=== PATIENT | female | born 1940 | race Caucasian/White ===

== ENCOUNTER 2024-05-07 16:34 | Inpatient (IN) | payer MEDICARE, BC ==
[~2024-05-07] VITALS: Ht 162.6 cm; Wt 71.7 kg
[2024-05-07] MEDS ORDERED: ROSU20TA2 PO (17:23)
[2024-05-07] MEDS ORDERED: CARV6.252 PO (17:23)
[2024-05-07] MEDS ORDERED: ESTR0.5T PO (17:23)
[2024-05-07] MEDS ORDERED: PRIM50TA27 PO (17:23)
[2024-05-07] MEDS ORDERED: BUME1TAB8 PO (17:23)
[2024-05-07] MEDS ORDERED: CLOP75TA33 PO (17:23)
[2024-05-07] MEDS ORDERED: PANT40TA49 PO (17:23)
[2024-05-07] MEDS ORDERED: DULO60CA45 PO (17:23)
[2024-05-07] MEDS ORDERED: FAMO20TA8 PO (17:23)
[2024-05-07] MEDS ORDERED: SACU1TAB7 PO (17:23)
[2024-05-07] MEDS ORDERED: LEVO112T5 PO (17:23)
[2024-05-07] MEDS ORDERED: ISOS30TA9 PO (17:23)
[2024-05-07] MEDS ORDERED: POTA-10 PO (17:24)
[2024-05-07] MEDS ORDERED: ALPR0.25 PO (17:24)
[2024-05-07] MEDS ORDERED: NITR0.4T48 SL (17:24)
[2024-05-07 17:54] LABS: BASOPHILS % (AUTO) 0.9 % (0.0-2.0); EOSINOPHILS % (AUTO) 0.8 % (0.0-7.0); HEMATOCRIT 45.2 % (31.2-41.9); HEMOGLOBIN 14.4 g/dL (10.9-14.3); LYMPHOCYTES % (AUTO) 16.6 % (20.5-51.5); MEAN CORPUSCULAR HEMOGLOBIN 28.7 uug (24.7-32.8); MEAN CORPUSCULAR HGB CONC 32 g/dL (32.3-35.6); MEAN CORPUSCULAR VOLUME 90.2 fL (75.5-95.3); MONOCYTES % (AUTO) 10.1 % (0.0-11.0); NEUTROPHILS % (AUTO) 71.6 % (38.5-71.5); PLATELET COUNT (AUTO) 206 K/uL (179-408); RED BLOOD CELL COUNT(AUTO) 5.01 MIL/uL (3.63-4.92); RED CELL DISTRIBUTION WIDTH 16.7 % (12.3-17.7); WHITE BLOOD COUNT (AUTO) 10.8 K/uL (3.8-11.8)
[2024-05-07 17:55] LABS: BASOPHILS # (AUTO) 0.1 K/UL (0.0-0.2); EOSINOPHILS # (AUTO) 0.1 K/uL (0.0-0.7); LYMPHOCYTES # (AUTO) 1.8 K/uL (0.8-4.8); MONOCYTES # (AUTO) 1.1 K/uL (0.1-1.30); NEUTROPHILS # (AUTO) 7.8 K/uL (1.8-8.9)
[2024-05-07 18:02] LABS: DIFFERENTIAL COMMENT 1
[2024-05-07 18:06] LABS: CALCIUM 8.9 mg/dL (8.5-10.1); CARBON DIOXIDE 28 mmol/L (21-32); CHLORIDE 100 mmol/L (98-107); CREATININE 1.7 mg/dL (0.6-1.3); GLUCOSE 107 mg/dL (74-106); POTASSIUM 4.4 mmol/L (3.5-5.1); SODIUM SERUM 139 mmol/L (136-145); UREA NITROGEN, BLOOD 26 mg/dL (7-18)
[2024-05-07 18:16] LABS: LACTIC ACID 2.4 mmol/L (0.4-2.0)
[2024-05-07 18:19] LABS: ALANINE AMINOTRANSFERASE 19 U/L (14-59); ALBUMIN 2.9 g/dL (3.4-5.0); ALKALINE PHOSPHATASE 96 U/L (50-136); ASPARTATE AMINOTRANSFERASE 20 U/L (15-37); BILIRUBIN,DIRECT 0.2 mg/dL (0.0-0.2); BILIRUBIN,TOTAL 0.7 mg/dL (0.2-1.0); NT-PRO BNP 12306 pg/mL (0-125); TOTAL PROTEIN, SERUM 6.6 g/dL (6.4-8.2)
[2024-05-07] MEDS ORDERED: POTASSIUM BICARBONATE/CIT AC 25 MEQ TABLET.EFF ONE (19:57)
[2024-05-07] MEDS ORDERED: FUROSEMIDE 40 MG TABLET ONE (19:58)
[2024-05-07] MEDS: POTASSIUM BICARBONATE/CIT AC 25 MEQ TABLET.EFF PO ONE (20:17)
[2024-05-07] MEDS: FUROSEMIDE 20 MG TABLET PO ONE (20:18)
[2024-05-07 23:30] VITALS: BP 152/95; TEMP 98; O2SAT 97
[2024-05-07] MEDS ORDERED: NITROGLYCERIN 0.4 MG/TAB BOTTLE SL PRN (23:30)
[2024-05-07] MEDS ORDERED: ALPRAZOLAM 0.25 MG TABLET PO PRN (23:30)
[2024-05-07] MEDS ORDERED: VALSARTAN PO SCH (23:30)
[2024-05-07] MEDS ORDERED: DULOXETINE 60 MG CAPSULE.DR PO SCH (23:30)
[2024-05-07] MEDS: CARVEDILOL 6.25 MG TABLET PO SCH (23:30)
[2024-05-07] MEDS: ATORVASTATIN 20 MG TABLET PO SCH (23:30)
[2024-05-07] MEDS: PRIMIDONE 50 MG TABLET PO SCH (23:30)
[2024-05-07] MEDS ORDERED: ACETAMINOPHEN 325 MG TABLET PO PRN (23:30)
[2024-05-07] MEDS: ISOSORBIDE DINITRATE 20 MG TABLET PO SCH (23:30)
[2024-05-07] MEDS ORDERED: ONDANSETRON 4 MG/2 ML VIAL IV PRN (23:30)
[2024-05-07] MEDS ORDERED: SACUBITRIL PO SCH (23:30)
[2024-05-08 00:05] VITALS: BP 151/95; TEMP 97.7; O2SAT 96
[2024-05-08] MEDS: IV NS 1000 ML 1,000 ML IV PRN (03:23)
[2024-05-08] MEDS ORDERED: ALPRAZOLAM 0.25 MG TABLET PO PRN (05:15)
[2024-05-08] MEDS ORDERED: ISOSORBIDE DINITRATE 20 MG TABLET PO SCH (06:00)
[2024-05-08 06:30] VITALS: TEMP 98.2; O2SAT 96
[2024-05-08] MEDS: PANTOPRAZOLE SODIUM 40 MG TABLET.DR PO SCH (06:55)
[2024-05-08] MEDS ORDERED: LEVOTHYROXINE SODIUM 112 MCG TABLET PO SCH ×2 (07:00)
[2024-05-08] MEDS: CARVEDILOL 6.25 MG TABLET PO SCH (08:00)
[2024-05-08] MEDS ORDERED: FAMOTIDINE 20 MG TABLET PO SCH (09:00)
[2024-05-08] MEDS ORDERED: BUMETANIDE 1 MG TABLET PO SCH (09:00)
[2024-05-08] MEDS: ESTRADIOL 1 MG TABLET PO SCH (09:00)
[2024-05-08] MEDS: CLOPIDOGREL 75 MG TABLET PO SCH (09:00)
[2024-05-08] MEDS: BUMETANIDE 1 MG/4 ML VIAL IV SCH (09:00)
[2024-05-08] MEDS: ENOXAPARIN SODIUM 30 MG/0.3 ML DISP.SYRIN SUBCUT SCH (09:00)
[2024-05-08] MEDS ORDERED: ISOS30TA86 PO (11:19)
[2024-05-08] MEDS ORDERED: ASPI81TA31 PO (11:19)
[2024-05-08] MEDS ORDERED: LEVO125T8 PO (11:19)
[2024-05-08 12:00] VITALS: BP 149/99; TEMP 97.3; O2SAT 95
[2024-05-08] MEDS: DULOXETINE 60 MG CAPSULE.DR PO SCH (12:44)
[2024-05-08] MEDS: LEVOTHYROXINE SODIUM 125 MCG TABLET PO SCH (12:44)
[2024-05-08] MEDS: ASPIRIN EC 81 MG TABLET.DR PO SCH (12:44)
[2024-05-08] MEDS: ISOSORBIDE MONONITRATE 30 MG TAB.SR.24H PO SCH (12:45)
[2024-05-08] MEDS: PROTEIN SUPPLEMENT (PROSTAT) 30 ML LIQUID PO SCH (13:45)
[2024-05-08 15:31] LABS: *BILIRUBIN,URIN NEGATIVE (NEGATIVE); *CLARITY,URINE CLEAR (CLEAR); *COLOR,URINE LIGHT YELLOW (YELLOW); *KETONES,URINE NEGATIVE (NEGATIVE); *PROTEIN,URINE NEGATIVE (NEGATIVE); *UROBILINOGEN,URINE 0.2 E.U./dl (NORMAL); LEUKOCYTE ESTERASE ,URINE TRACE (NEGATIVE); NITRITE, URINE NEGATIVE (NEGATIVE); UGLUCOSE NEGATIVE (NEGATIVE)
[2024-05-08 15:34] LABS: *BLOOD, URINE TRACE (NEGATIVE)
[2024-05-08 15:42] LABS: BACTERIA,URINE FEW /HPF (NONE SEEN); RBC,URINE 0-3 /HPF (0-3); SQUAMOUS EPITHELIAL CELL,UR FEW /HPF (NONE SEEN); WBC,URINE 0-3 /HPF (0-3)
[2024-05-08 16:35] VITALS: BP 151/92; TEMP 97.7; O2SAT 95
[2024-05-08] MEDS: SACUBITRIL/VALSARTAN 24 MG-26 TABLET PO SCH (17:51)
[2024-05-08 20:00] VITALS: BP 131/75; TEMP 97.2; O2SAT 95
[2024-05-08] MEDS: ATORVASTATIN 40 MG TABLET PO SCH (21:05)
[2024-05-08] MEDS ORDERED: GUAIFENESIN/DEXTROMETHORPHAN 5 ML UDC PO PRN (23:00)
[2024-05-08 23:57] VITALS: BP 151/90; TEMP 98.1; O2SAT 96
[2024-05-09 04:00] VITALS: BP 157/99; TEMP 98.1; O2SAT 96
[2024-05-09 07:34] LABS: CALCIUM 8.5 mg/dL (8.5-10.1); CARBON DIOXIDE 29 mmol/L (21-32); CHLORIDE 98 mmol/L (98-107); CREATININE 1.4 mg/dL (0.6-1.3); GLUCOSE 130 mg/dL (74-106); POTASSIUM 3.4 mmol/L (3.5-5.1); SODIUM SERUM 137 mmol/L (136-145); UREA NITROGEN, BLOOD 22 mg/dL (7-18)
[2024-05-09 08:00] VITALS: BP 152/90; TEMP 98; O2SAT 92
[2024-05-09] MEDS: POTASSIUM CHLORIDE 20 MEQ POWDER PACKET PO ONE (10:40)
[2024-05-09 12:00] VITALS: BP 104/58; TEMP 97.5; O2SAT 93
[2024-05-09] MEDS ORDERED: ZINC OXIDE OINT 30 GM TUBE TOP PRN (15:00)
[2024-05-09] MEDS ORDERED: REMEDY ESSENTIAL ZINC PASTE 113 GM TOP PRN (15:00)
[2024-05-09 15:57] VITALS: BP 133/81; TEMP 97.9; O2SAT 95
[2024-05-09 17:35] VITALS: BP 133/81
[2024-05-09] MEDS: SACUBITRIL/VALSARTAN 49 MG-51 MG TABLET PO SCH (17:35)
[2024-05-09] MEDS ORDERED: ACET-3117 PO (20:06)
[2024-05-09] MEDS ORDERED: ATOR40TA PO (20:07)
[2024-05-09] MEDS ORDERED: ENOX40DI SQ (20:08)
[2024-05-09] MEDS ORDERED: GUAI474L3 PO (20:11)
[2024-05-09] MEDS ORDERED: ONDA4VIA23 IV (20:15)
[2024-05-09] MEDS ORDERED: PROT30LI PO (20:17)
[2024-05-09] MEDS ORDERED: [UNRECOGNIZED DRUG - CODE] TP (20:22)
[2024-05-10] MEDS ORDERED: BUMETANIDE 1 MG TABLET PO SCH (09:00)
[2024-05-10] MEDS ORDERED: BUME2TAB8 PO (14:07)
== END 2024-05-09 18:39 | DRG 291 ==
LOC: ER 16:35 → MEDSURG3 21:24 → TELE3 05-08 08:00
PROVIDERS: ADMIT Nurse Practitioner Acute Care; ATTEND Nurse Practitioner Acute Care
DX: I13.0 Hypertensive heart and chronic kidney disease with heart failure and stage 1 through stage 4 chronic kidney disease, or unspecified chronic kidney disease (principal); I50.23 Acute on chronic systolic (congestive) heart failure; N17.0 Acute kidney failure with tubular necrosis; I25.810 Atherosclerosis of coronary artery bypass graft(s) without angina pectoris; E44.0 Moderate protein-calorie malnutrition; N39.0 Urinary tract infection, site not specified; R62.7 Adult failure to thrive; R29.6 Repeated falls; I25.5 Ischemic cardiomyopathy; N18.9 Chronic kidney disease, unspecified; E03.9 Hypothyroidism, unspecified; R13.10 Dysphagia, unspecified; T44.7X5A Adverse effect of beta-adrenoreceptor antagonists, initial encounter; T50.2X5A Adverse effect of carbonic-anhydrase inhibitors, benzothiadiazides and other diuretics, initial encounter; Y92.039 Unspecified place in apartment as the place of occurrence of the external cause; R26.81 Unsteadiness on feet; Z68.27 Body mass index [BMI] 27.0-27.9, adult; E88.09 Other disorders of plasma-protein metabolism, not elsewhere classified; Z79.02 Long term (current) use of antithrombotics/antiplatelets; Z79.899 Other long term (current) drug therapy; B96.89 Other specified bacterial agents as the cause of diseases classified elsewhere; M54.2 Cervicalgia; M53.3 Sacrococcygeal disorders, not elsewhere classified; K21.9 Gastro-esophageal reflux disease without esophagitis
CPT/HCPCS: 36415; 70450; 70490; 71045; 83605; 83735; 84484; 85025; 85730; 93005; 93307; A4606; A4663; A9150; G0378; J1650; J3490; J7040

== ENCOUNTER 2024-05-09 16:38 | Inpatient (IN) | payer MEDICARE, BC ==
[~2024-05-09] VITALS: Ht 162.6 cm; Wt 65.3 kg
[~2024-05-09 16:38] MED LIST: ALPR0.25 PO; ASPI81TA31 PO; BUME1TAB8 PO; CARV6.252 PO; CLOP75TA33 PO; DULO60CA45 PO; ESTR0.5T PO; FAMO20TA8 PO; ISOS30TA86 PO; LEVO125T8 PO; NITR0.4T48 SL; PANT40TA49 PO; PRIM50TA27 PO; ROSU20TA2 PO; SACU1TAB7 PO
[2024-05-09 20:00] VITALS: BP 117/69; TEMP 98.1; O2SAT 92
[2024-05-09] MEDS ORDERED: ACET-3117 PO (20:06)
[2024-05-09] MEDS ORDERED: ATOR40TA PO (20:07)
[2024-05-09] MEDS ORDERED: ENOX40DI SQ (20:08)
[2024-05-09] MEDS ORDERED: GUAI474L3 PO (20:11)
[2024-05-09] MEDS ORDERED: REMEDY ESSENTIAL ZINC PASTE 113 GM TOP SCH (20:15)
[2024-05-09] MEDS ORDERED: ONDA4VIA23 IV (20:15)
[2024-05-09] MEDS ORDERED: PROT30LI PO (20:17)
[2024-05-09] MEDS ORDERED: [UNRECOGNIZED DRUG - CODE] TP (20:22)
[2024-05-09] MEDS: ATORVASTATIN 20 MG TABLET PO SCH (23:15)
[2024-05-09] MEDS: PRIMIDONE 50 MG TABLET PO SCH (23:15)
[2024-05-09] MEDS ORDERED: ATORVASTATIN 40 MG TABLET PO SCH (23:15)
[2024-05-10] MEDS: LEVOTHYROXINE SODIUM 125 MCG TABLET PO SCH (06:19)
[2024-05-10] MEDS ORDERED: FAMOTIDINE 20 MG TABLET PO SCH (09:00)
[2024-05-10] MEDS: CLOPIDOGREL 75 MG TABLET PO SCH (10:08)
[2024-05-10] MEDS: CARVEDILOL 6.25 MG TABLET PO SCH (10:09)
[2024-05-10] MEDS: ASPIRIN 81 MG TAB.CHEW PO SCH (10:09)
[2024-05-10] MEDS: ISOSORBIDE MONONITRATE 30 MG TAB.SR.24H PO SCH (10:09)
[2024-05-10] MEDS: DULOXETINE 60 MG CAPSULE.DR PO SCH (10:10)
[2024-05-10] MEDS: ESTRADIOL 1 MG TABLET PO SCH (10:10)
[2024-05-10] MEDS: BUMETANIDE 1 MG TABLET PO SCH (10:19)
[2024-05-10] MEDS: PANTOPRAZOLE SODIUM 40 MG TABLET.DR PO SCH (13:23)
[2024-05-10] MEDS: ACETAMINOPHEN 325 MG TABLET PO PRN (13:23)
[2024-05-10] MEDS ORDERED: BUME2TAB8 PO (14:07)
[2024-05-10] MEDS: ENOXAPARIN SODIUM 30 MG/0.3 ML DISP.SYRIN SQ SCH (15:29)
[2024-05-10 20:10] VITALS: BP 139/85; TEMP 97.5; O2SAT 96
[2024-05-10] MEDS: ATORVASTATIN 40 MG TABLET PO SCH (21:02)
[2024-05-11] MEDS: PANTOPRAZOLE SODIUM 40 MG TABLET.DR PO SCH (06:04)
[2024-05-11 06:11] VITALS: BP 151/85; TEMP 97.6; O2SAT 94
[2024-05-11] MEDS: BUMETANIDE 1 MG TABLET PO SCH (08:38)
[2024-05-11] MEDS: DULOXETINE 60 MG CAPSULE.DR PO SCH (08:39)
[2024-05-11] MEDS: HYDROCODONE/APAP 5-325MG TABLET PO PRN (10:53)
[2024-05-11 16:12] VITALS: BP 110/67; TEMP 94.8; O2SAT 90
[2024-05-11 19:44] VITALS: BP 117/74; TEMP 97.2; O2SAT 97
[2024-05-12 06:00] VITALS: BP 161/82; TEMP 97.3; O2SAT 94
[2024-05-12] MEDS: ENSURE WITH FIBER 237 ML LIQUID (CHOCOLATE) PO SCH (12:33)
[2024-05-12 16:00] VITALS: BP 130/76; TEMP 97.6; O2SAT 99
[2024-05-12] MEDS: BISACODYL 5 MG TABLET.DR PO PRN (18:46)
[2024-05-12 20:00] VITALS: BP 97/53; TEMP 97.6; O2SAT 94
[2024-05-13 06:39] VITALS: BP 151/90; TEMP 98; O2SAT 100
[2024-05-13] MEDS: SPIRONOLACTONE 25 MG TABLET PO SCH (09:07)
[2024-05-13 12:00] VITALS: BP 107/60; TEMP 98.2; O2SAT 97
[2024-05-13] MEDS: BUMETANIDE 1 MG TABLET PO SCH (12:22)
[2024-05-13 15:59] VITALS: BP 120/78; TEMP 97.6; O2SAT 99
[2024-05-13] MEDS: DULOXETINE 30 MG CAPSULE.DR PO SCH (17:29)
[2024-05-13 20:40] VITALS: BP 128/69; TEMP 98; O2SAT 94
[2024-05-14 04:26] LABS: *BILIRUBIN,URIN NEGATIVE (NEGATIVE); *BLOOD, URINE 2+ (NEGATIVE); *COLOR,URINE YELLOW (YELLOW); *KETONES,URINE NEGATIVE (NEGATIVE); *PROTEIN,URINE 2+ (NEGATIVE); LEUKOCYTE ESTERASE ,URINE 2+ (NEGATIVE); NITRITE, URINE POSITIVE (NEGATIVE); PH,URINE 7.5 (5.0-8.0); UGLUCOSE NEGATIVE (NEGATIVE)
[2024-05-14 04:40] LABS: *CLARITY,URINE SLIGHTLY HAZY (CLEAR)
[2024-05-14 06:42] LABS: BACTERIA,URINE MANY /HPF (NONE SEEN); SQUAMOUS EPITHELIAL CELL,UR FEW /HPF (NONE SEEN)
[2024-05-14 07:24] LABS: ALANINE AMINOTRANSFERASE 12 U/L (14-59); ALBUMIN 2.3 g/dL (3.4-5.0); ALKALINE PHOSPHATASE 73 U/L (50-136); ASPARTATE AMINOTRANSFERASE 12 U/L (15-37); BILIRUBIN,TOTAL 0.8 mg/dL (0.2-1.0); CALCIUM 8.9 mg/dL (8.5-10.1); CARBON DIOXIDE 32 mmol/L (21-32); CHLORIDE 96 mmol/L (98-107); CREATININE 1.5 mg/dL (0.6-1.3); GLUCOSE 119 mg/dL (74-106); PHOSPHOROUS 2.7 mg/dL (2.5-4.9); POTASSIUM 3.4 mmol/L (3.5-5.1); SODIUM SERUM 134 mmol/L (136-145); TOTAL PROTEIN, SERUM 6.4 g/dL (6.4-8.2); UREA NITROGEN, BLOOD 36 mg/dL (7-18)
[2024-05-14 07:28] LABS: BASOPHILS # (AUTO) 0.1 K/UL (0.0-0.2); BASOPHILS % (AUTO) 0.7 % (0.0-2.0); EOSINOPHILS # (AUTO) 0.1 K/uL (0.0-0.7); EOSINOPHILS % (AUTO) 0.9 % (0.0-7.0); HEMATOCRIT 43.1 % (31.2-41.9); HEMOGLOBIN 14.1 g/dL (10.9-14.3); LYMPHOCYTES # (AUTO) 2.1 K/uL (0.8-4.8); LYMPHOCYTES % (AUTO) 21.2 % (20.5-51.5); MEAN CORPUSCULAR HEMOGLOBIN 29.1 uug (24.7-32.8); MEAN CORPUSCULAR HGB CONC 33 g/dL (32.3-35.6); MEAN CORPUSCULAR VOLUME 89.2 fL (75.5-95.3); MONOCYTES # (AUTO) 1.4 K/uL (0.1-1.30); MONOCYTES % (AUTO) 13.8 % (0.0-11.0); NEUTROPHILS # (AUTO) 6.3 K/uL (1.8-8.9); NEUTROPHILS % (AUTO) 63.4 % (38.5-71.5); PLATELET COUNT (AUTO) 227 K/uL (179-408); RED BLOOD CELL COUNT(AUTO) 4.83 MIL/uL (3.63-4.92); RED CELL DISTRIBUTION WIDTH 17.4 % (12.3-17.7); WHITE BLOOD COUNT (AUTO) 9.9 K/uL (3.8-11.8)
[2024-05-14 07:58] LABS: DIFFERENTIAL COMMENT 1
[2024-05-14] MEDS ORDERED: POTASSIUM CHLORIDE 20 MEQ POWDER PACKET GT ONE (09:45)
[2024-05-14] MEDS: POTASSIUM CHLORIDE 20 MEQ POWDER PACKET PO ONE (10:36)
[2024-05-14 15:07] VITALS: BP 132/72; TEMP 98.4; O2SAT 97
[2024-05-14 20:36] VITALS: BP 116/60; TEMP 97.5; O2SAT 96
[2024-05-14] MEDS ORDERED: CEphaleXIN 250 MG CAPSULE ONE (21:05)
[2024-05-14] MEDS: CEphaleXIN 250 MG CAPSULE PO SCH (21:19)
[2024-05-15] MEDS ORDERED: REMEDY ESSENTIAL ZINC PASTE 113 GM TOP PRN (05:46)
[2024-05-15 06:31] VITALS: BP 118/50; TEMP 98.2; O2SAT 99
[2024-05-15] MEDS ORDERED: NITROFURANTOIN/NITROFURAN MAC 100 MG CAPSULE PO SCH (09:00)
[2024-05-15] MEDS: GABAPENTIN 100 MG CAPSULE PO SCH (09:35)
[2024-05-15] MEDS: VENLAFAXINE XR 37.5 MG CAP.SR.24H PO SCH (09:36)
[2024-05-15] MEDS: BUMETANIDE 1 MG TABLET PO SCH (09:37)
[2024-05-15 16:00] VITALS: BP 133/66; TEMP 98.1; O2SAT 95
[2024-05-15] MEDS ORDERED: CEphaleXIN 250 MG CAPSULE ONE (21:18)
[2024-05-15 21:56] VITALS: BP 137/70; TEMP 99.4; O2SAT 91
[2024-05-16 06:32] VITALS: BP 155/86; TEMP 99.7; O2SAT 91
[2024-05-16 06:39] VITALS: BP 155/86; TEMP 99.7; O2SAT 91
[2024-05-16 07:40] VITALS: BP 112/54; TEMP 97.8; O2SAT 97
[2024-05-16 13:17] VITALS: BP 101/77; TEMP 98; O2SAT 94
[2024-05-16 16:17] VITALS: BP 106/55; TEMP 97.9
[2024-05-16 16:39] LABS: BASOPHILS # (AUTO) 0.1 K/UL (0.0-0.2); BASOPHILS % (AUTO) 0.7 % (0.0-2.0); DIFFERENTIAL COMMENT 1; EOSINOPHILS % (AUTO) 0.3 % (0.0-7.0); HEMATOCRIT 38.7 % (31.2-41.9); HEMOGLOBIN 12.6 g/dL (10.9-14.3); LYMPHOCYTES # (AUTO) 1.4 K/uL (0.8-4.8); LYMPHOCYTES % (AUTO) 13.3 % (20.5-51.5); MEAN CORPUSCULAR HEMOGLOBIN 28.7 uug (24.7-32.8); MEAN CORPUSCULAR HGB CONC 33 g/dL (32.3-35.6); MEAN CORPUSCULAR VOLUME 88.1 fL (75.5-95.3); MONOCYTES # (AUTO) 1.3 K/uL (0.1-1.30); MONOCYTES % (AUTO) 12.1 % (0.0-11.0); NEUTROPHILS # (AUTO) 7.6 K/uL (1.8-8.9); NEUTROPHILS % (AUTO) 73.6 % (38.5-71.5); PLATELET COUNT (AUTO) 275 K/uL (179-408); RED BLOOD CELL COUNT(AUTO) 4.39 MIL/uL (3.63-4.92); RED CELL DISTRIBUTION WIDTH 17.5 % (12.3-17.7); WHITE BLOOD COUNT (AUTO) 10.4 K/uL (3.8-11.8)
[2024-05-16 17:13] LABS: ALANINE AMINOTRANSFERASE 12 U/L (14-59); ALBUMIN 2.1 g/dL (3.4-5.0); ALKALINE PHOSPHATASE 68 U/L (50-136); ASPARTATE AMINOTRANSFERASE 17 U/L (15-37); BILIRUBIN,TOTAL 0.6 mg/dL (0.2-1.0); CALCIUM 8.5 mg/dL (8.5-10.1); CARBON DIOXIDE 31 mmol/L (21-32); CHLORIDE 95 mmol/L (98-107); CREATININE 1.6 mg/dL (0.6-1.3); GLUCOSE 165 mg/dL (74-106); MAGNESIUM 1.8 mg/dL (1.8-2.4); PHOSPHOROUS 2.8 mg/dL (2.5-4.9); POTASSIUM 3.4 mmol/L (3.5-5.1); SODIUM SERUM 134 mmol/L (136-145); UREA NITROGEN, BLOOD 42 mg/dL (7-18)
[2024-05-16 20:00] VITALS: BP 107/56; TEMP 97.6; O2SAT 97
[2024-05-17] VITALS (7 sets, daily range): BP systolic 108–149; BP diastolic 63–84; TEMP 97.5–98.8; O2SAT 79–97
[2024-05-17] MEDS: BUMETANIDE 1 MG TABLET PO SCH (10:12)
[2024-05-18 05:10] VITALS: O2SAT 97
[2024-05-18 06:00] VITALS: BP 125/77; TEMP 98.5; O2SAT 93
[2024-05-18 08:47] VITALS: BP 126/65
== END 2024-05-18 13:30 | disposition home health service (06) | DRG 291 ==
PROVIDERS: ADMIT Physical Medicine & Rehabilitation Pain Medicine; ATTEND Physical Medicine & Rehabilitation Pain Medicine
DX: I13.0 Hypertensive heart and chronic kidney disease with heart failure and stage 1 through stage 4 chronic kidney disease, or unspecified chronic kidney disease (principal); I50.23 Acute on chronic systolic (congestive) heart failure; N39.0 Urinary tract infection, site not specified; F33.9 Major depressive disorder, recurrent, unspecified; N17.9 Acute kidney failure, unspecified; F03.93 Unspecified dementia, unspecified severity, with mood disturbance; R53.81 Other malaise; I25.10 Atherosclerotic heart disease of native coronary artery without angina pectoris; N18.9 Chronic kidney disease, unspecified; E03.9 Hypothyroidism, unspecified; E88.09 Other disorders of plasma-protein metabolism, not elsewhere classified; I25.5 Ischemic cardiomyopathy; R26.9 Unspecified abnormalities of gait and mobility; G89.29 Other chronic pain; R62.7 Adult failure to thrive; R29.6 Repeated falls; R13.10 Dysphagia, unspecified; Z95.1 Presence of aortocoronary bypass graft; Z79.899 Other long term (current) drug therapy
CPT/HCPCS: 36415; 71045; 73110; 83735; 84100; 85025; 97535-GO-CO; A4663; J1650